=== PATIENT | female | born 1970 | race Asian ===

== ENCOUNTER → 2019-05-16 | Outpatient (CLI) | payer BC ==
[~2019-05-16] MED LIST: MACRODANTIN50 MG/CA1 PO
== END ==
LOC: MC.RAD 09:30
DX: Z12.31 Encounter for screening mammogram for malignant neoplasm of breast (principal)

== ENCOUNTER → 2019-08-21 | Outpatient (CLI) | payer BC | LOC: COL.RAD 08-19 10:30 | DX: E05.90 Thyrotoxicosis, unspecified without thyrotoxic crisis or storm (principal) ==